=== PATIENT | female | born 1950 ===

== ENCOUNTER 2020-09-22 03:53 | Emergency (ER) | payer MEDICARE, MEDICAID ==
[2020-09-22] MEDS ORDERED: Sodium Chloride 0.9% 10 ML Syringe FLUSH PRN (03:56)
--- NOTE | 2020-09-22 04:09 | EDM.PDOC ---
ED HPI GENERAL MEDICAL PROBLEM - General Chief Complaint: General Stated Complaint: right lower extremity weakness Time Seen by Provider: 09/22/20 03:53 Source of Information: Reports: EMS, EMS Notes Reviewed History Limitations: Reports: Altered Mental Status (special care unit in the long term ) - History of Present Illness INITIAL COMMENTS - FREE TEXT/NARRATIVE: Patient comes in the emergency room with EMS with complaints of right lower extremity weakness. The long term had contacted EMS stating that approximately 1-1/2 to 2 hours ago staff had noticed that the patient had right lower extremity weakness. It is unknown how long the patient has been having right lower extremity weakness. Patient also has cognitive impairment and is unsure if the patient is unable to understand fully the instructions or if the right lower extremity concern is new. EMS states that they did notice that the patient was unable to follow commands appropriately very well however after multiple attempts the patient was able to follow all commands however the right lower extremity had a little bit more weakness noted than The left. Patient currently denies any chest pain, shortness of breath, dizziness, lightheadedness, changes in sensation, pain, fever, concerns, peripheral edema. Patient also denies any active COVID-19 symptoms. Patient is very consistent and answering questions appropriately. EMS report vitals stable. They did not call a stroke code prior to patient arrival due to having only right lower extremity weakness. An EKG was not obtained prior to arrival and and IV site attempt was unsuccessful. EMS and long term did state patient did have 1 emesis prior to arrival. Onset: Unknown/Unsure Severity: Mild Improves with: Reports: None Worsens with: Reports: None Context: Reports: Other Associated Symptoms: Reports: Weakness Treatments SHROUD LINE TIER: Reports: See EMS Report ED ROS GENERAL - Review of Systems Review Of Systems: See Below Reason Not Obtained: pt is not consistent with answering questions Constitutional: Reports: No Symptoms HEENT: Reports: No Symptoms Respiratory: Reports: No Symptoms Cardiovascular: Reports: No Symptoms Endocrine: Reports: No Symptoms GI/Abdominal: Reports: No Symptoms : Reports: No Symptoms Musculoskeletal: Reports: No Symptoms Skin: Reports: No Symptoms Neurological: Reports: No Symptoms Psychiatric: Reports: No Symptoms Hematologic/Lymphatic: Reports: No Symptoms Immunologic: Reports: No Symptoms ED EXAM, GENERAL - Physical Exam Exam: See Below Exam Limited By: Altered Mental Status General Appearance: Alert Eye Exam: Bilateral Eye: EOMI, PERRL Ears: Normal External Exam, Normal Canal, Hearing Grossly Normal, Normal TMs Ear Exam: Bilateral Ear: Auricle Normal, Canal Normal, TM normal Nose: Normal Inspection, Normal Mucosa Throat/Mouth: Normal Inspection, Normal Lips, Normal Voice, No Airway Compromise Head: Atraumatic, Normocephalic Neck: Normal Inspection, Supple, Non-Tender, Full Range of Motion Respiratory/Chest: No Respiratory Distress, Lungs Clear, Normal Breath Sounds, No Accessory Muscle Use, Chest Non-Tender Cardiovascular: Normal Peripheral Pulses, Regular Rate, Rhythm, No Edema GI/Abdominal: Normal Bowel Sounds, Soft, Non-Tender, No Organomegaly, No Distention, No Abnormal Bruit, No Mass, Pelvis Stable (Female) Exam: Deferred Rectal (Female) Exam: Deferred Back Exam: Normal Inspection, Full Range of Motion Extremities: Normal Inspection, Non-Tender, No Pedal Edema, Normal Capillary Refill, Other (right lower extremity drift noted. ) Neurological: Alert, Other (inconsistent answering quetsions, difficultly follow commands ) Psychiatric: Normal Affect, Normal Mood Skin Exam: Warm, Dry, Intact, Normal Color Course - Orders/Labs/Meds Orders: Active Orders 24 hr Category Date Time Status EKG Documentation Completion [RC] STAT Care 09/22/20 03:56 Active Head wo Cont [CT] Stat Exams 09/22/20 03:56 Taken Sodium Chloride 0.9% [Saline Flush] Med 09/22/20 03:56 Active 10 ml FLUSH ASDIRECTED PRN Peripheral IV Insertion Adult [OM.PC] Stat Oth 09/22/20 03:56 Ordered Medication Orders Sodium Chloride (Saline Flush) 10 ml FLUSH ASDIRECTED PRN PRN Reason: Keep Vein Open Labs: Laboratory Tests 09/22/20 09/22/20 09/22/20 Range/Units 04:10 04:10 04:10 WBC 12.4 H (4.0-10.0) x10^3/uL RBC 4.13 (4.00-5.50) x10^6/uL Hgb 12.7 (12.0-16.0) g/dL Hct 36.6 (33.0-47.0) % MCV 88.6 (78.0-93.0) fL MCH 30.8 (26.0-32.0) pg MCHC 34.7 (32.0-36.0) g/dL RDW Coeff of Irene 12.5 (10.0-15.0) % Plt Count 434 H (130-400) x10^3/uL Neut % (Auto) 81.0 H (50.0-80.0) % Lymph % (Auto) 6.9 L (25.0-50.0) % Pender % (Auto) 10.4 (2.0-11.0) % Eos % (Auto) 1.5 (0.0-4.0) % Baso % (Auto) 0.2 (0.2-1.2) % PT 9.8 (9.5-12.3) SEC INR 0.9 L (2.0-3.5) APTT 23.3 L (25.6-32.8) SEC Sodium 135 L (136-145) mmol/L Potassium 4.1 (3.5-5.1) mmol/L Chloride 100 (98-107) mmol/L Carbon Dioxide 30 (21-32) mmol/L Anion Gap 9.1 L (10-20) mmol/L BUN 25 H (7-18) mg/dL Creatinine 0.8 (0.55-1.02) mg/dL Est Cr Clr Drug Dosing TNP Estimated GFR (MDRD) > 60 Glucose 106 (74-106) mg/dL Calcium 8.9 (8.5-10.1) mg/dL Corrected Calcium 9.14 (8.5-10.1) mg/dL Total Bilirubin 0.3 (0.2-1.0) mg/dL AST 22 (15-37) U/L ALT 25 (14-59) U/L Alkaline Phosphatase 108 (46-116) U/L POC Troponin I (0.00-0.08) ng/mL Total Protein 7.3 (6.4-8.2) g/dL Albumin 3.7 (3.4-5.0) g/dL Globulin 3.6 Albumin/Globulin Ratio 1.03 09/22/20 Range/Units 04:14 WBC (4.0-10.0) x10^3/uL RBC (4.00-5.50) x10^6/uL Hgb (12.0-16.0) g/dL Hct (33.0-47.0) % MCV (78.0-93.0) fL MCH (26.0-32.0) pg MCHC (32.0-36.0) g/dL RDW Coeff of Irene (10.0-15.0) % Plt Count (130-400) x10^3/uL Neut % (Auto) (50.0-80.0) % Lymph % (Auto) (25.0-50.0) % Pender % (Auto) (2.0-11.0) % Eos % (Auto) (0.0-4.0) % Baso % (Auto) (0.2-1.2) % PT (9.5-12.3) SEC INR (2.0-3.5) APTT (25.6-32.8) SEC Sodium (136-145) mmol/L Potassium (3.5-5.1) mmol/L Chloride (98-107) mmol/L Carbon Dioxide (21-32) mmol/L Anion Gap (10-20) mmol/L BUN (7-18) mg/dL Creatinine (0.55-1.02) mg/dL Est Cr Clr Drug Dosing Estimated GFR (MDRD) Glucose (74-106) mg/dL Calcium (8.5-10.1) mg/dL Corrected Calcium (8.5-10.1) mg/dL Total Bilirubin (0.2-1.0) mg/dL AST (15-37) U/L ALT (14-59) U/L Alkaline Phosphatase (46-116) U/L POC Troponin I 0.01 (0.00-0.08) ng/mL Total Protein (6.4-8.2) g/dL Albumin (3.4-5.0) g/dL Globulin Albumin/Globulin Ratio Meds: Medications Generic Name Dose Route Start Last Admin Trade Name Freq PRN Reason Stop Dose Admin Sodium Chloride 10 ml 09/22/20 03:56 Saline Flush FLUSH ASDIRECTED PRN Keep Vein Open - Re-Assessments/Exams Free Text/Narrative Re-Assessment/Exam: 09/22/20 05:18 pt resting comfortably. VSS. She denies any concerns or complaints Departure - Departure Time of Disposition: 05:10 Disposition: DC/Tfer to Acute Hospital 02 Condition: Fair Clinical Impression: Hemorrhagic stroke - Discharge Information *PRESCRIPTION DRUG MONITORING PROGRAM REVIEWED*: Not Applicable *COPY OF PRESCRIPTION DRUG MONITORING REPORT IN PATIENT HYACINTH: Not Applicable Forms: ED Department Discharge, Interfacility Transfer EMTALA - My Orders Last 24 Hours: My Active Orders 09/22/20 03:56 EKG Documentation Completion [RC] STAT Head wo Cont [CT] Stat Sodium Chloride 0.9% [Saline Flush] 10 ml FLUSH ASDIRECTED PRN Peripheral IV Insertion Adult [OM.PC] Stat - Assessment/Plan Last 24 Hours: My Active Orders 09/22/20 03:56 EKG Documentation Completion [RC] STAT Head wo Cont [CT] Stat Sodium Chloride 0.9% [Saline Flush] 10 ml FLUSH ASDIRECTED PRN Peripheral IV Insertion Adult [OM.PC] Stat Assessment:: 1. right lower extremity weakness Plan: 1. Stroke code initiated upon arrival to the ER 2. Labs completed in the ER. Results reviewed with the patient 3. IV initiated in the emergency department 4. NIH Scale- 3 NIH Scale repeated-[address] scan of head completed in ER. Results reviewed 6. Activase administration- not given due to patients unknown of last well and CT results reveal acute parenchymal hematoma- hemorrhagic stroke 7. Patient and nursing staff was updated regarding the plan of care 8. Consultation completed with Eben Sanders. 9. Zofran ordered for nausea if needed 10. [address] results of parenchymal hematoma. Eben contacted at [phone] Downey recommends contacting [facility] services for acute hemorrhagic non operative stroke. [id number] Vascular neurology- Dr. Lomeli recommend transfer to ER for further evaluation and treatment. 11. Family contacted multiple times without success. Carmela [phone]- paperwork states Alexasndra Hughes [phone] (sister) 12. Patient agreeable to the above plan of care 13. All questions and concerns were addressed with the patient transfer
[2020-09-22 04:37] LABS: ANION GAP 9.1 mmol/L (10-20); CHLORIDE,CL 100 mmol/L (98-107); SODIUM,NA 135 mmol/L (136-145)
[2020-09-22 04:47] LABS: PTT,PARTIAL THROMBOPLSTIN TIME 23.3 SEC (25.6-32.8)
--- NOTE | 2020-09-22 08:07 | CT ---
[id number] CT/CT Head WO IV EXAM: NONCONTRAST HEAD CT INDICATION: RIGHT LEG WEAKNESS COMPARISON: None. DISCUSSION: In or adjacent to the parafalcine posterior left frontal lobe there is a 26 x 19 x 16 mm hyperdensity with apparent vasogenic edema. This likely represents an acute intraparenchymal hematoma, but brain MRI with and without contrast may be useful to evaluate for other underlying pathology. There is mild generalized atrophy and mild chronic small vessel ischemia. No midline shift, hydrocephalus or acute territorial infarct is identified. Areas of encephalomalacia are noted in both anterior parietal lobes. Evidence of prior sinus surgery. Mild to moderate mucosal thickening involving the left maxillary sinus, both sphenoid sinuses and scattered residual ethmoid air cells. Frothy secretions in the sphenoid sinuses suggest acute sinusitis. Results were called at 4:44 AM. IMPRESSION: 1. 26 x 19 x 16 mm hyperdensity in the parafalcine posterior left frontal lobe, favor acute intraparenchymal hemorrhage. Follow-up and/or brain MRI with and without contrast is suggested to exclude other underlying pathology. Roe Soria MD 09/22/20 0806 Thank you for allowing us to participate in the care of your patient.
== END 2020-09-22 05:45 | disposition short-term general hospital (02) ==
LOC: VM.ED 03:53
DX: I62.9 Nontraumatic intracranial hemorrhage, unspecified (principal); G81.91 Hemiplegia, unspecified affecting right dominant side
CPT/HCPCS: 70450; 80053; 84484; 85025; 85610; 85730; 99284; 99285-25

== ENCOUNTER 2020-09-29 14:46 | Emergency (ER) | payer MEDICARE, MEDICAID ==
--- NOTE | 2020-09-29 14:55 | EDM.PDOC ---
ED HPI GENERAL MEDICAL PROBLEM - General Chief Complaint: General Stated Complaint: FELL Time Seen by Provider: 09/29/20 14:46 Source of Information: Reports: Patient History Limitations: Reports: Altered Mental Status (schizophrenia, parkinsonism, recent hemorrhagic stroke ( 2 weeks)) - History of Present Illness INITIAL COMMENTS - FREE TEXT/NARRATIVE: Patient comes into the emergency department by EMS with concerns of decreased alertness and lethargy. intermediate staff stated around 10 AM to noon today the patient had decrease in responsiveness and was lethargic at times she had what they called agonal respirations. They state that the patient was recently started on Rocephin within the last 2 days for E. coli in her urinary tract. Patient also recently had a right cerebral hemorrhagic stroke with right sided weaknesses and was just recently discharged from the hospital setting yesterday regarding treatment management. Staff state that the patient has been running a low-grade temp of 100.2 And they have been treating her temperature.intermediate state that the patient was not arousable to verbal or painful stimuli. Also since her hemorrhagic stroke she they have found that she has significant amount of right sided weakness and does need extra assistance with her ADLs.Patient is difficult to obtain history for she does have active delusions and agitation at times according to the [facility] staff. When asked if she has any concerns or complaint the patient denies any active concerns or complaints. Patient is alert and arousable to ambulance staff prior to arrival. Ambulance states that they had found no Acute concerns regarding the patient's status. Quality: Reports: Other Severity: Mild Improves with: Reports: None Worsens with: Reports: None Treatments ASSISTANT MANAGER PT: Reports: See EMS Report - Related Data Allergies Allergy/AdvReac Type Severity Reaction Status Date / Time No Known Allergies Allergy Verified 09/29/20 15:09 ED ROS GENERAL - Review of Systems Review Of Systems: Unable To Obtain Reason Not Obtained: poor historian, schizophrenia, parkinsonism, delusions ED EXAM, GENERAL - Physical Exam Exam: See Below Exam Limited By: No Limitations General Appearance: Alert, No Apparent Distress Eye Exam: Bilateral Eye: EOMI (pt unable to follow commands but able to move eyes in all stone without difficulty ), PERRL Ears: Normal External Exam, Normal Canal, Hearing Grossly Normal, Normal TMs Ear Exam: Bilateral Ear: Auricle Normal, Canal Normal, TM normal Nose: Normal Inspection, Normal Mucosa, No Blood Throat/Mouth: Normal Inspection, Normal Lips, Normal Gums, Normal Oropharynx, Normal Voice, No Airway Compromise Head: Atraumatic, Normocephalic Neck: Normal Inspection, Supple, Non-Tender, Full Range of Motion Respiratory/Chest: No Respiratory Distress, Lungs Clear, Normal Breath Sounds, No Accessory Muscle Use, Chest Non-Tender Cardiovascular: Normal Peripheral Pulses, Regular Rate, Rhythm, No Edema, No JVD, No Murmur, No Rub Peripheral Pulses: 3+: Radial (L), Radial (R) GI/Abdominal: Normal Bowel Sounds, Soft, Non-Tender, No Organomegaly, No Distention, No Abnormal Bruit, No Mass (Female) Exam: Deferred Rectal (Female) Exam: Deferred Back Exam: Normal Inspection Extremities: Normal Inspection, Non-Tender, No Pedal Edema, Normal Capillary Refill, Other (right leg and right foot significant weakness. circle beveler strength decreased on right side as well as drift. ) Neurological: Alert, Other (schizophrenia with difficulty understanding/follow commands, delusions, agitation ) Psychiatric: Normal Affect, Normal Mood Skin Exam: Warm, Dry, Intact, Normal Color, No Rash Lymphatic: No Adenopathy Course - Vital Signs Last Recorded V/S: Last Vital Signs Temp 36.8 C 09/29/20 14:49 Pulse 87 09/29/20 14:49 Resp 16 09/29/20 14:49 BP 112/69 09/29/20 14:49 Pulse Ox 97 09/29/20 14:49 - Orders/Labs/Meds Labs: Laboratory Tests 09/29/20 09/29/20 09/29/20 Range/Units 15:09 15:09 15:09 WBC 7.3 (4.0-10.0) x10^3/uL RBC 3.53 L (4.00-5.50) x10^6/uL Hgb 10.6 L D (12.0-16.0) g/dL Hct 30.5 L (33.0-47.0) % MCV 86.4 (78.0-93.0) fL MCH 30.0 (26.0-32.0) pg MCHC 34.8 (32.0-36.0) g/dL RDW Coeff of Irene 13.3 (10.0-15.0) % Plt Count 469 H (130-400) x10^3/uL Add Manual Diff Yes Neutrophils % (Manual) 54 (50-80) % Band Neutrophils % 2 (0-6) % Lymphocytes % (Manual) 19 L (25-50) % Atypical Lymphs % 3 H (0) % Monocytes % (Manual) 18 H (2-11) % Eosinophils % (Manual) 4 (0-4) % Platelet Estimate Increased H PT 9.9 (9.5-12.3) SEC INR 0.9 L (2.0-3.5) Sodium 135 L (136-145) mmol/L Potassium 3.9 (3.5-5.1) mmol/L Chloride 99 (98-107) mmol/L Carbon Dioxide 30 (21-32) mmol/L Anion Gap 9.9 L (10-20) mmol/L BUN 17 (7-18) mg/dL Creatinine 0.7 (0.55-1.02) mg/dL Est Cr Clr Drug Dosing TNP Estimated GFR (MDRD) > 60 Glucose 96 (74-106) mg/dL Calcium 8.5 (8.5-10.1) mg/dL Corrected Calcium 9.86 (8.5-10.1) mg/dL Total Bilirubin 0.2 (0.2-1.0) mg/dL AST 23 (15-37) U/L ALT 35 (14-59) U/L Alkaline Phosphatase 112 (46-116) U/L Total Protein 6.5 (6.4-8.2) g/dL Albumin 2.3 L (3.4-5.0) g/dL Globulin 4.2 Albumin/Globulin Ratio 0.55 - Re-Assessments/Exams Free Text/Narrative Re-Assessment/Exam: 09/29/20 15:51 pt remains alert and wants us to be done so she can go home. Had no episodes of decrease alertness in the ER. VSS. Dr. Matamoros contacted regarding patient status, lab results and CT results. Departure - Departure Time of Disposition: 15:50 Disposition: Home, Self-Care 01 Condition: Good Clinical Impression: Mental status change resolved Fall Qualifiers: Encounter type: initial encounter Qualified Code(s): W19.XXXA - Unspecified fall, initial encounter - Discharge Information *PRESCRIPTION DRUG MONITORING PROGRAM REVIEWED*: Not Applicable *COPY OF PRESCRIPTION DRUG MONITORING REPORT IN PATIENT HYACINTH: Not Applicable Instructions: Fall Prevention in the Home, Adult, [id number] Referrals: Nandini Matamoros MD [Primary Care Provider] - Forms: ED Department Discharge Additional Instructions: 1. rest 2. increase your water intake 3. Continue all at home medications 4. Activity and diet as tolerated 5. Can take over the counter Tylenol for any pain or discomfort 6. Follow up with PCP if symptoms continue, return, or progress 7. Call with any questions or concerns Sepsis Event Note (ED) - Focused Exam Vital Signs: Vital Signs Temp Pulse Resp BP Pulse Ox 09/29/20 14:49 36.8 C 87 16 112/69 97 - Assessment/Plan Assessment:: 1. change in mental status now resolved 2. fall Plan: 1. Labs completed in the ER. Results reviewed with the patient 2. CT scan of head completed in ER. Results reviewed 3. Patient will return to the [facility]. Dr. Matamoros contacted regarding patient update. She agrees with the plan of care. 4. Patient and nursing staff was updated regarding the plan of care 5. Patient will be transferred to a higher level of care for further medical evaluation and treatment. 6. Patient and family are agreeable to the above plan of care 7. All questions and concerns were addressed with the patient and family prior to discharge
[2020-09-29 15:40] LABS: ANION GAP 9.9 mmol/L (10-20); CHLORIDE,CL 99 mmol/L (98-107); SODIUM,NA 135 mmol/L (136-145)
--- NOTE | 2020-09-29 15:44 | CT ---
[id number] CT/CT Head WO IV EXAM: CT Head WO IV CLINICAL DATA: TRAUMA COMPARISON: CORRELATION IS MADE WITH SEPTEMBER 22, 2020 FINDINGS: A 2 cm left parafalcine hemorrhage is stable in size since last week Surrounding white matter hypodensity is still present This appears extra axial This may not represent a simple traumatic hemorrhage An underlying lesion is suspected Follow-up studies with MRI would be helpful using gadolinium IMPRESSION: No change in size of left parafalcine frontal hemorrhage Surrounding white matter hypodensity Extra-axial etiology suspected Further studies suggested Modesto Gustafson MD 09/29/20 0840 Thank you for allowing us to participate in the care of your patient.
== END 2020-09-29 16:15 | disposition home or self-care (01) ==
LOC: VM.ED 14:46
DX: R41.82 Altered mental status, unspecified (principal); Z04.3 Encounter for examination and observation following other accident; F20.9 Schizophrenia, unspecified
CPT/HCPCS: 36415; 70450; 80053; 85025; 85610; 99283; 99285-25